=== PATIENT | male | born 1975 | race Caucasian/White ===

== ENCOUNTER 2024-01-09 01:39 | Emergency (ER) | payer SELFPAY ==
[2024-01-09 01:41] VITALS: BP 163/95; PULSE 89; RESP 20; TEMP 36.6; O2SAT 95; BMI 34.6
--- NOTE | 2024-01-09 01:52 | XR_ITS ---
[facility] [id number] Patient Name: KULWINDER ROGERS MRN: [id number] date: 1975 Sex: M Assigned Patient Location: ER Current Patient Location: ER Accession/Order Number: [id number] Exam Date: 01/09/2024 02:07 Report Date: 01/09/2024 02:58 At the request of: SAMUEL THAKUR Procedure: XR knee LT 3V EXAM: XR knee LT 3V HISTORY: Atraumatic pain . Left knee throbbing and stabbing pain for several days. COMPARISON: None. TECHNIQUE: 4 view left knee submitted. FINDINGS: Adequate bone mineralization. No fracture or destructive bone process or blastic lesion. Well-preserved joints. No narrowing or dislocation or subluxation. No obvious joint effusion. Small superior patellar enthesophyte. There is prepatellar soft tissue edema and swelling. Uncertain etiology. No gas in the tissues. Edema extends along the distal course of the patellar tendon as well. Remaining soft tissues are normal. XR/XR knee LT 3V IMPRESSION: 1. Nonspecific soft tissue swelling along the volar aspect of knee in the prepatellar region extending along the course of the patellar tendon, ventral. 2. No acute or significant bone or joint findings otherwise. Incidental superior patellar enthesophyte. Electronically authenticated by: JOLYNN ADSH Date: 01/09/2024 02:58
--- NOTE | 2024-01-09 03:14 | ED_ITS ---
HPI - General Adult General Chief complaint: Extremity Injury, Lower Stated complaint: L KNEE PAIN Time Seen by Provider: 01/09/24 01:42 Source: patient Mode of arrival: walk-in Limitations: no limitations History of Present Illness HPI narrative: 48-year-old male presents for left knee pain. He gives no history of an injury. No other joint has been hurting and he has never had problems with his left knee. No fever or rash. He has been able to ambulate but it hurts more when he walks. Pain is moderate. Sometimes it is sharp and stabbing. Related Data Previous Rx's ?Medication ?Instructions ?Recorded acetaminophen 300 mg-codeine 30 mg 1 tab PO Q6H PRN pain 5 days #20 01/09/24 tablet tabs ibuprofen 800 mg tablet 800 mg PO Q8H PRN pain #20 tabs 01/09/24 Allergies Allergy/AdvReac Type Severity Reaction Status Date / Time gabapentin [From Neurontin] AdvReac Intermediate Migraine Verified 01/09/24 01:47 pregabalin [From Lyrica] AdvReac Intermediate Migraine Verified 01/09/24 01:47 Review of Systems ROS Narrative A ten point review of systems is negative except as noted above. Exam Narrative Exam Narrative: Nurses note and vital signs reviewed and patient is not hypoxic. General: The patient appears well and in no apparent distress. Patient is resting comfortably on cart. Skin: Warm, dry, no pallor noted. There is no rash noted. Head: Normocephalic, atraumatic Eye: Normal conjunctiva, no drainage Ears, Nose, Mouth, and Throat: oral mucosa is moist. Nares patent. Cardiovascular: Regular Rate and Rhythm Respiratory: Patient is in no distress, no accessory muscle use, lungs are clear to auscultation, no wheezing, rales or rhonchi Back: non-tender GI: Soft and nontender Musculoskeletal: Left ankle and hip are nontender. No swelling in his calf. He has some prepatellar soft tissue swelling but there is no erythema or bruise or rash. The knee joint is stable. Neurological: A&O, normal speech Psychiatric: Cooperative Constitutional Vital Signs, click to edit/add: Last Vital Signs Temp 97.8 F 01/09/24 01:41 Pulse 89 01/09/24 01:41 Resp 20 01/09/24 01:41 BP 163/95 H 03/27/24 01:41 Pulse Ox 95 01/09/24 01:41 O2 Del Method Room Air 01/09/24 01:41 Course Vital Signs Vital signs: Vital Signs Temperature 97.8 F 01/09/24 01:41 Pulse Rate 89 01/09/24 01:41 Respiratory Rate 20 01/09/24 01:41 Blood Pressure 163/95 H 01/09/24 01:41 Pulse Oximetry 95 01/09/24 01:41 Oxygen Delivery Method Room Air 01/09/24 01:41 Temperature 97.8 F 01/09/24 01:41 Pulse Rate 89 01/09/24 01:41 Respiratory Rate 20 01/09/24 01:41 Blood Pressure 163/95 H 01/09/24 01:41 Pulse Oximetry 95 01/09/24 01:41 Oxygen Delivery Method Room Air 01/09/24 01:41 Medical Decision Making MDM Narrative Medical decision making narrative: X-ray findings are discussed with the patient. Brian wrap applied, application checked by me and found to be appropriate, he is neurovascularly intact and he will follow-up with orthopedics. He was provided pain medication. I have no clinical suspicion of septic arthritis. Treatment diagnosis and follow-up were discussed with the patient. Differential Diagnosis Differential Diagnosis: Arthritis, bursitis, knee effusion, septic arthritis Imaging Data Left knee x-ray: Radiologist's impression: ITS Impressions Knee X-Ray 01/09/24 01:52 IMPRESSION: 1. Nonspecific soft tissue swelling along the volar aspect of knee in the prepatellar region extending along the course of the patellar tendon, ventral. 2. No acute or significant bone or joint findings otherwise. Incidental superior patellar enthesophyte. Electronically authenticated by: JOLYNN DASH Date: 01/09/2024 02:58 Discharge Plan Discharge Stand Alone Forms: Portal Instructions Chief Complaint: Extremity Injury, Lower Clinical Impression: Acute pain of left knee Patient Disposition: Home, Self-Care Time of Disposition Decision: 03:12 Condition: Good Mode of Transportation: Private Vehicle Prescriptions / Home Meds: New acetaminophen-codeine 300-30 mg tablet 1 tab PO Q6H PRN (Reason: pain) 5 Days Qty: 20 0RF ibuprofen 800 mg tablet 800 mg PO Q8H PRN (Reason: pain) Qty: 20 0RF Print Language: Finnish Instructions: Knee Pain (ED) Additional Instructions: See Dr. Leonard on January 13 at 9:30 AM Referrals: Physician,Non-Staff, MD [Primary Care Provider] - 1 week
[2024-01-09] MEDS: IBUPROFEN 400 MG TABLET 800 MG PO (03:19)
== END 2024-01-09 03:29 | disposition home or self-care (01) ==
PROVIDERS: Emergency Provider Emergency Medicine
DX: M25.562 Pain in left knee (principal)
CPT/HCPCS: 73562; 99283